=== PATIENT | male | born 1985 | race Caucasian/White ===

== ENCOUNTER 2016-09-05 17:36 | Emergency (ER) | payer OTHER ==
[2016-09-05 18:03] LABS: BASOPHIL 0.2 % (0-2); EOSINOPHIL 1.6 % (0-5); HCT 38.7 % (42.0-52.0); HGB 13.8 g/dl (13.2-18.0); LYMPHOCYTE 27.1 % (15-48); MCH 31.9 pg (25.0-31.0); MCHC 35.7 g/dL (32.0-36.0); MCV 89.6 fL (78.0-100.0); MONOCYTE 7.5 % (0-12); MPV 8.8 fL (6.0-9.5); NEUTROPHIL 63.6 % (41-80); PLT 247 K/uL (150-400); RBC 4.32 M/uL (4.70-6.00); RDW 12.7 % (11.5-14.0); WBC 6.2 K/uL (4.0-10.5)
[2016-09-05 18:21] LABS: INR 1.04 (0.9-1.2); PROTHROMBIN TIME 13.2 SECONDS (11.7-14.0); PTT 28.6 SECONDS (23.2-31.4)
[2016-09-05 18:41] LABS: ALBUMIN 5.1 g/dL (3.5-5.0); BILIRUBIN - TOTAL 0.5 mg/dL (0.1-1.0); GLOBULIN (CALCULATION) 2.2 g/dL (2.2-4.2); MAGNESIUM 2.02 mg/dL (1.40-2.10); POTASSIUM 3.8 mmol/L (3.5-5.1); TOTAL PROTEIN 7.3 g/dL (6.4-8.3)
[2016-09-05 18:43] LABS: CKMB 1.86 ng/mL (0.97-4.94); MYOGLOBIN 28 ng/mL (26-65); PRO-BNP 14 pg/mL (0-125); TROPONIN T < 0.010 ng/mL
[2016-09-05 22:38] LABS: CKMB 1.63 ng/mL (0.97-4.94); TROPONIN T < 0.010 ng/mL
== END 2016-09-05 23:20 | disposition home or self-care (01) ==
LOC: FER 17:36
PROVIDERS: Emergency Medicine Emergency Medical Services; Internal Medicine
DX: R07.9 Chest pain, unspecified (principal); R42 Dizziness and giddiness; F17.299 Nicotine dependence, other tobacco product, with unspecified nicotine-induced disorders; Z79.82 Long term (current) use of aspirin; Z95.0 Presence of cardiac pacemaker
CPT/HCPCS: 36415; 71010; 80053; 82550; 82553; 83735; 83874; 83880; 84484; 85025; 85379; 85610; 85730; 93005

== ENCOUNTER 2021-01-18 16:49 | Emergency (ER) | payer OTHER ==
[~2021-01-18 16:49] MED LIST: BENTYL10 MG PO; ESOMEPRAZOLE MA20 MG PO; IBUPROFEN800 MG PO; MOBIC7.5 MG PO; PRILOSEC20 MG PO; ROBAXIN750 MG PO
== END 2021-01-18 17:26 | disposition home or self-care (01) ==
LOC: FER 16:49
DX: T67.5XXA Heat exhaustion, unspecified, initial encounter (principal); Z53.21 Procedure and treatment not carried out due to patient leaving prior to being seen by health care provider